=== PATIENT | male | born 1960 | race Caucasian/White ===

== ENCOUNTER 2020-01-23 17:29 | Emergency (ER) | payer MEDICAID, SELFPAY ==
[2020-01-23] VITALS (9 sets, daily range): BP systolic 112–141; BP diastolic 77–88; PULSE 54–67; RESP 10–18; TEMP 36.6–37.1; O2SAT 94–97
--- NOTE | 2020-01-23 17:30 | DI.RAD_ITS ---
EXAM: XR CHEST 2V PA LATERAL CLINICAL HISTORY: chest pain TECHNIQUE: 2D digital imaging was performed. COMPARISON: No exams were available for comparison FINDINGS: MEDIASTINUM: Normal. HEART: Normal. PULMONARY VASCULATURE: Normal. LUNGS: Clear. The lungs appear hyperinflated with flattened diaphragms suggesting underlying COPD. PLEURAL SPACE: No pleural effusion or pneumothorax. BONE:Normal. OTHER FINDINGS:Normal. IMPRESSION: No acute pulmonary findings. DATA REPOSITORY: RADIATION DOSE DELIVERED:
[2020-01-23] MEDS: Aspirin 81 MG CHEW 324 MG CH (17:48)
[2020-01-23 18:01] LABS: Abs Immature Grans 0.02 k/cumm (0.0-0.09); Absolute Basophil Count 0.02 k/cumm (0.0-0.2); Absolute Eosinophil Count 0.23 k/cumm (0.0-0.7); Absolute Lymphocyte Count 3.42 k/cumm (1.2-3.4); Absolute Monocyte Count 0.95 k/cumm (0.11-0.7); Absolute Neutrophil Count 5.21 k/cumm (1.2-6.7); Basophils % 0.2; Eosinophils % 2.3; HCT 42.6 % (40.0-50.0); HGB 14.4 g/dL (13.5-17.5); Immature Grans % 0.2 %; Lymphocytes % 34.7; Mean Corp. HGB Concentration 33.8 g/dL (32.0-36.0); Mean Corpuscular Hemoglobin 29.8 pg (27.0-33.0); Mean Corpuscular Volume 88.2 fL (80-95); Mean Platelet Volume 9.3 fL (8.0-11.0); Monocytes % 9.6; Platelet Count 371 x1000/uL (130-400); RBC 4.83 m/cumm (4.50-6.00); RBC Distribution Width 13.6 % (11.8-14.1); White Blood Cell Count 9.85 k/cumm (4.4-10.8)
[2020-01-23 18:08] LABS: ALT 35 U/L (16-63); AST 20 U/L (15-37); Albumin 3.7 g/dL (3.4-5.0); Alkaline Phosphatase 87 U/L (46-116); Anion Gap 7.7 mmol/L (3-11); BUN 23 mg/dL (7-18); Bilirubin, Total 0.2 mg/dL (0.2-1.0); CO2 28.3 mmol/L (21.0-32.0); CREATININE 0.86 mg/dL (0.70-1.30); Calcium 8.9 mg/dL (8.5-10.1); Chloride 103 mmol/L (98-107); Glucose 112 mg/dL (74-106); Magnesium 1.9 mg/dL (1.8-2.4); Potassium 4.1 mmol/L (3.5-5.1); Sodium 139 mmol/L (136-145); Total Protein 7.1 g/dL (6.4-8.2)
[2020-01-23 18:09] LABS: Troponin I < 0.05 ng/mL (<0.06)
--- NOTE | 2020-01-23 18:13 | NUR.NOTE ---
Assumed care of pt, report from Chanel. Pt reports intermittent sharp/heavy left chest pain that woke him from sleep this am at 0400 with associated SOB. No exacerbating factors. Plan for repeat trop at 2039.
--- NOTE | 2020-01-23 18:21 | W.ED.GENAD ---
Discharge Plan Disposition Patient Disposition: OTHER Condition: Serious Discharge Details Chief Complaint: Chest Pain Clinical Impression: Chest pressure Primary Care Provider: Yair Haque ED Provider: Tyrone Vega Home Meds and New Rx's Prescriptions: No Action No Known Home Meds RF: 0 Medical Decision Making 59-year-old gentleman, smokes 1 pack of cigarettes daily, otherwise no past medical history presents for chest tightness over the past 2 days. Occasionally gets aching in his left shoulder-upper arm and a sharp pain through the left side of his chest. Patient's father of a massive heart attack at age 49. Patient appears well, nontoxic but certainly story is concerning given the vague chest tightness, going to the left shoulder, smokes 1 pack of cigarettes daily. No evidence of tachycardia or hypoxia, diagnosis such as pneumonia, PE, low my differential. Will not obtain d-dimer. I am unable to reproduce the discomfort, difficult to say this is musculoskeletal in nature. As above, certainly concerning for ACS. Will give full dose aspirin and obtain a cardiac work-up. Initial work-up here in the ER unremarkable. Patient continues to state that he is a 5 of 10 tightness-heaviness. Will subsequently give nitro and reevaluate. Patient reports that after the first nitro his pain mostly 5 down to 2, after the second nitro pain went from a 2 down to a 1. He now has some discomfort along the right side of his chest. Case was reviewed with Dr. Carter who evaluated the patient herself, please see her note. Discussed options with patient. We could certainly obtain a repeat troponin and EKG in 3 hours and if unremarkable could set up for an outpatient stress test versus admit to our facility for a cardiac rule out. I do believe that his story is concerning enough that admission is reasonable. After both I and Dr. Carter spoke with the patient, he is comfortable with admission to our facility. I placed a call to our hospitalist team, I spoke with Dr. Haque, he will evaluate the patient in the ER and admit to his services. Medical Records Medical records reviewed: Yes I reviewed the patient's medical records. Imaging Data Radiologic Study: Attestation: I personally reviewed and interpreted this imaging study as follows: Imaging: X-Ray Radiologist's impression: Chest x-ray unremarkable, read by virtual radiology Lab Data Lab results reviewed: Yes I reviewed the patient's lab results. Lab results narrative: Laboratory Tests Range/Units 01/23/20 01/23/20 17:40 17:40 WBC (4.4-10.8) k/cumm 9.85 RBC (4.50-6.00) m/cumm 4.83 Hgb (13.5-17.5) g/dL 14.4 Hct (40.0-50.0) % 42.6 MCV (80-95) fL 88.2 MCH (27.0-33.0) pg 29.8 MCHC (32.0-36.0) g/dL 33.8 RDW (11.8-14.1) % 13.6 Plt Count (130-400) x1000/uL 371 MPV (8.0-11.0) fL 9.3 Immature Gran % % 0.2 Neutrophils % 53.0 Lymphocytes % 34.7 Monocytes % 9.6 Eosinophils % 2.3 Basophils % 0.2 Absolute Neutrophils (1.2-6.7) k/cumm 5.21 Absolute Lymphocytes (1.2-3.4) k/cumm 3.42 H Absolute Monocytes (0.11-0.7) k/cumm 0.95 H Absolute Eosinophils (0.0-0.7) k/cumm 0.23 Absolute Basophils (0.0-0.2) k/cumm 0.02 Sodium (136-145) mmol/L 139 Potassium (3.5-5.1) mmol/L 4.1 Chloride (98-107) mmol/L 103 Carbon Dioxide (21.0-32.0) mmol/L 28.3 Anion Gap (3-11) mmol/L 7.7 BUN (7-18) mg/dL 23 H Creatinine (0.70-1.30) mg/dL 0.86 Estimated GFR/1.73 m2 (mL/min/1.73m2) >= 60.00 Glucose (74-106) mg/dL 112 H Calcium (8.5-10.1) mg/dL 8.9 Magnesium (1.8-2.4) mg/dL 1.9 Total Bilirubin (0.2-1.0) mg/dL 0.2 AST (15-37) U/L 20 ALT (16-63) U/L 35 Alkaline Phosphatase (46-116) U/L 87 Troponin I (<0.06) ng/mL < 0.05 Total Protein (6.4-8.2) g/dL 7.1 Albumin (3.4-5.0) g/dL 3.7 ECG Data Attestation: I personally reviewed and interpreted this ECG (s) as follows: Interpretation: Reviewed and interpreted with Dr. Carter. EKG obtained at 1736, reveals sinus rhythm, ventricular rate of 61. No STEMI. HPI General Mode of arrival: ambulatory. Date/Time Provider Initiated Documentation: 01/23/20 17:30. Limitations to Documentation: no limitations. Information obtained by: patient. HPI Narrative: This is a 59-year-old gentleman with no significant past medical history, does smoke a pack of cigarettes daily, presenting to the ER for evaluation of chest tightness over the past 2 days. He reports that the tightness has been pretty consistent since it began but he does get some aching in his left shoulder and does occasionally have a sharp left-sided chest pain. The pain does not go past his elbow and his left arm. It does not radiate into his neck or into his jaw. He denies cough or shortness of breath. He denies recent illness or trauma. He does not take aspirin daily. Patient reports having had a stress test 15-20 years ago. Of note, his father did pass of a heart attack at the age of 49. Patient denies any pain in his back, abdominal pain, nausea, vomiting, change in bowel or bladder habit, pain or swelling in his legs, numbness, tingling, weakness. He does report general fatigue Related Data Home Medications Medication Instructions Recorded Confirmed Unknown [No Known Home Meds] 01/23/20 01/23/20 Allergies Allergy/AdvReac Type Severity Reaction Status Date / Time Penicillins Allergy Unverified 01/23/20 17:38 General Stated Complaint: Chest Pain ADIS: 2 Review of Systems Constitutional Constitutional: Reports fatigue, Denies fever(s), Denies headache(s) and Denies weakness Eyes Eyes: Denies change in vision ENT Ears, Nose, Mouth, and Throat: Denies headache(s) and Denies sore throat Cardiovascular Cardiovascular: Reports chest pain, Denies rapid heart rate, Denies irregular heart rhythm, Denies leg edema, Denies lightheadedness, Reports radiating jaw, neck or arm pain and Denies dyspnea Respiratory Respiratory: Denies cough, Denies dyspnea and Denies wheezing Gastrointestinal Gastrointestinal: Denies abdominal pain, Denies nausea and Denies vomiting Genitourinary Genitourinary: Denies dysuria Musculoskeletal Musculoskeletal: Denies back pain, Denies numbness and Denies tingling Integumentary/Breasts Skin/Breast: Denies rash Neurologic Neurologic: Denies headache(s), Denies numbness, Denies tingling and Denies weakness Endocrine Endocrine: Reports fatigue Allergic/Immunologic Allergic/Immunologic: Denies wheezing [facility] Social History Smoking/Tobacco Use Status: Current every day Tobacco Type: cigarettes Alcohol Intake: current Alcohol Intake frequency: holidays/special occasions only Alcohol type: beer Drug use: Occasionally Substance use type: marijuana Exam Const General: cooperative, healthy appearing, comfortable and no acute distress Orientation: alert, awake and oriented x3 HENMT Head: normal to inspection, normocephalic and atraumatic Mouth: moist mucous membranes Throat: posterior oropharynx normal Eyes Conjunctivae: conjunctivae normal Neck Neck: normal visual inspection, full ROM, no lymphadenopathy, no meningeal signs, trachea midline, supple and nontender Chest Chest: normal inspection of the chest and normal palpation of entire chest wall Resp Effort & Inspection: normal respiratory effort and able to speak in complete sentences Auscultation: clear to auscultation bilaterally Cardio Rate: regular rate Rhythm: regular rhythm GI Inspection: normal to inspection Palpation: soft, not firm, no guarding, no pulsatile masses, not rigid and nontender Auscultation: normal bowel sounds Back/Spine/Pelvis Back: No back tenderness Skin General skin exam: no rashes or lesions noted Neuro General: patient alert, patient awake, patient oriented x3, moves all extremities and no focal motor deficits Gait: normal gait Motor: muscle tone normal throughout and strength 5/5 throughout Sensory Exam: no sensory deficits noted Extrem General: normal to inspection, full ROM, capillary refill normal, no pedal edema, no calf tenderness and normal gait Psych Appearance: grossly normal Mental Status: mental status grossly normal Course Vital Signs Vital signs: Vital Signs Temperature 37.1 C 01/23/20 17:34 Pulse 60 01/23/20 17:34 Respiratory Rate 16 01/23/20 17:34 Blood Pressure 139/85 01/23/20 17:34 Pulse Oximetry 96 01/23/20 17:34 Temperature 37.1 C 01/23/20 17:34 Temperature Source Skin 01/23/20 17:34 Pulse 60 01/23/20 17:46 Pulse 66 01/23/20 17:46 Respiratory Rate 16 01/23/20 17:46 Respiratory Effort Non-Labored 01/23/20 17:39 Blood Pressure 129/86 01/23/20 17:46 Blood Pressure Mean 97 01/23/20 17:46 Blood Pressure Position Supine 01/23/20 17:34 Pulse Oximetry 94 L 01/23/20 17:46 Oxygen Delivery Method Room Air 01/23/20 17:34 Oxygen Flow Rate 0 01/23/20 17:34 Pain Level 0 01/23/20 17:34 Lab/Test Results Lab/Test Results: Laboratory Tests Range/Units 01/23/20 01/23/20 17:40 17:40 WBC (4.4-10.8) k/cumm 9.85 RBC (4.50-6.00) m/cumm 4.83 Hgb (13.5-17.5) g/dL 14.4 Hct (40.0-50.0) % 42.6 MCV (80-95) fL 88.2 MCH (27.0-33.0) pg 29.8 MCHC (32.0-36.0) g/dL 33.8 RDW (11.8-14.1) % 13.6 Plt Count (130-400) x1000/uL 371 MPV (8.0-11.0) fL 9.3 Immature Gran % % 0.2 Neutrophils % 53.0 Lymphocytes % 34.7 Monocytes % 9.6 Eosinophils % 2.3 Basophils % 0.2 Absolute Neutrophils (1.2-6.7) k/cumm 5.21 Absolute Lymphocytes (1.2-3.4) k/cumm 3.42 H Absolute Monocytes (0.11-0.7) k/cumm 0.95 H Absolute Eosinophils (0.0-0.7) k/cumm 0.23 Absolute Basophils (0.0-0.2) k/cumm 0.02 Sodium (136-145) mmol/L 139 Potassium (3.5-5.1) mmol/L 4.1 Chloride (98-107) mmol/L 103 Carbon Dioxide (21.0-32.0) mmol/L 28.3 Anion Gap (3-11) mmol/L 7.7 BUN (7-18) mg/dL 23 H Creatinine (0.70-1.30) mg/dL 0.86 Estimated GFR/1.73 m2 (mL/min/1.73m2) >= 60.00 Glucose (74-106) mg/dL 112 H Calcium (8.5-10.1) mg/dL 8.9 Magnesium (1.8-2.4) mg/dL 1.9 Total Bilirubin (0.2-1.0) mg/dL 0.2 AST (15-37) U/L 20 ALT (16-63) U/L 35 Alkaline Phosphatase (46-116) U/L 87 Troponin I (<0.06) ng/mL < 0.05 Total Protein (6.4-8.2) g/dL 7.1 Albumin (3.4-5.0) g/dL 3.7
--- NOTE | 2020-01-23 18:30 | DI.VRAD_ITS ---
PROCEDURE INFORMATION: Exam: XR Chest, 2 Views Exam date and time: 01/23/2020 6:23 PM Age: 59 years old Clinical indication: Chest pain TECHNIQUE: Imaging protocol: XR of the chest Views: 2 views. COMPARISON: No relevant prior studies available. FINDINGS: Lungs: Unremarkable. No consolidation. Pleural space: Unremarkable. No pleural effusion. No pneumothorax. Heart/Mediastinum: Unremarkable. No cardiomegaly. Bones/joints: Unremarkable. IMPRESSION: No acute findings. Dictated and Authenticated by: Darius Roberts MD. Ordering:ROSIBEL Hansen MD
--- NOTE | 2020-01-23 19:47 | NUR.NOTE ---
[facility] in to eval pt for admission. pain to 2/10 s/p 2 nitro.
--- NOTE | 2020-01-23 20:01 | W.MEDCONSULT ---
Date of service: 01/23/20 Time of Service: 20:01 Assessment and Plan Assessment and plan (1) Chest pain: Status: Acute Assessment and plan: CP. I think ACS unlikely, what with no findings after 48 hours of continuous symptoms. I think response to AAs is affirmative evidence favoring GI source, though there is also a suggestion of musculoskeletal issue. Suffice to say that I think ACS is the least likely of these possibilities (note that any response to NTG is non-specific and could equally point to GI). Assuming second troponin remains flat I do not feel patient requires urgent admission. I think a reasonable plan would be to start him on PPI, and arrange for elective stress test within the week. History of Present Illness History of Present Illness Chief Complaint: CP Narrative: 59 male smoker. Reports 48 h of continuous CP -- substernal, pressure, occ sharp radiation to left shoulder. Also some involvement of epigastrum. No SOB, nausea or diaphoresis. No relation to activity, but has noted few occasions when he was working with arms extended and raised that pain may have been worse. No relation to PO or position. Took Rolaids this AM with definitre improvement. In ER w/u of note for negative troponin, CXR and normal EKG. Notes some improvement with SL NTG. I was asked to see patient for further evaluation. Review of Systems All systems reviewed & are unremarkable except as noted in HPI and below PFSH Social History Smoking/Tobacco Use Status: Current every day Tobacco Type: cigarettes Alcohol Intake: current Alcohol Intake frequency: holidays/special occasions only Alcohol type: beer Drug use: Occasionally Substance use type: marijuana Exam Narrative Exam Narrative: 135/77, 54, 16, 37.1, 97% RA. HEENT AT/NC; neck supple w/o JVD; lungs clear; heart RRR w/o MRG; mild tenderness left parasternal and upper chest, correspopnding to areas he repoprts as involved, though cannot say that the tenderness reproduces his pain specifically; abdomen soft and NT; extremities w/o edema, pulses 2+/=; neuro Ox3, non-focal Results Last Vital Signs Temp 37.1 C 01/23/20 17:34 Pulse 54 L 01/23/20 19:40 Resp 16 06/08/20 19:40 BP 135/77 01/23/20 19:40 Pulse Ox 97 01/23/20 19:40 Labs Result diagrams: 01/23/20 17:40 01/23/20 17:40 Labs: Laboratory Results - last 24 hr 01/23/20 01/23/20 17:40 17:40 WBC 9.85 RBC 4.83 Hgb 14.4 Hct 42.6 MCV 88.2 MCH 29.8 MCHC 33.8 RDW 13.6 Plt Count 371 MPV 9.3 Immature Gran % 0.2 Neutrophils % 53.0 Lymphocytes % 34.7 Monocytes % 9.6 Eosinophils % 2.3 Basophils % 0.2 Absolute Neutrophils 5.21 Absolute Lymphocytes 3.42 H Absolute Monocytes 0.95 H Absolute Eosinophils 0.23 Absolute Basophils 0.02 Sodium 139 Potassium 4.1 Chloride 103 Carbon Dioxide 28.3 Anion Gap 7.7 BUN 23 H Creatinine 0.86 Estimated GFR/1.73 m2 >= 60.00 Glucose 112 H Calcium 8.9 Magnesium 1.9 Total Bilirubin 0.2 AST 20 ALT 35 Alkaline Phosphatase 87 Troponin I < 0.05 Total Protein 7.1 Albumin 3.7
[2020-01-23 20:55] LABS: Troponin I < 0.05 ng/mL (<0.06)
== END 2020-01-23 21:20 | disposition home or self-care (01) ==
PROVIDERS: Emergency Provider Physician Assistant; PCP Neuromusculoskeletal Medicine & OMM
DX: R07.89 Other chest pain (principal); R06.02 Shortness of breath; F17.200 Nicotine dependence, unspecified, uncomplicated; Z53.29 Procedure and treatment not carried out because of patient's decision for other reasons
CPT/HCPCS: 36415; 80053; 93005; 99252; 99283; 99285; 71046; 83735; 84484; 85025; 93010

== ENCOUNTER 2020-01-24 11:00 | Emergency (ER) | payer MEDICAID, SELFPAY ==
[2020-01-24] VITALS (39 sets, daily range): BP systolic 125–157; BP diastolic 77–101; PULSE 51–82; RESP 10–20; TEMP 36.5; O2SAT 94–99
[2020-01-24] MEDS: Normal Saline Flush 10 ML SYR IVP (11:00)
--- NOTE | 2020-01-24 11:15 | ETT_ITS ---
APPROVED REPORT Exam: Exercise Treadmill Patient Location: ER Room/Bed: Stress Nurse: Sofía García RN BMI: 21.47 Baseline Rhythm: Sinus Rhythm Indications: Chest pain. Medical History Medical History: Angina Allergies: Penicillins Cardiac Risk Factors: FHX of CAD Pretest Chest Pain Characteristics: Exertional Chest pain Exercise History: Physically active Lung Sounds: Clear to auscultation Heart Sounds: Regular Stress Test Details Test: Exercise stress testing was performed using a Holger protocol. Rest Stress HR Resting HR Supine: 58 bpm Max Heart Rate (APMHR): 162 bpm Resting HR Standin bpm Target HR (85% APMHR): 137 bpm Max HR Achieved: 174 bpm % of APMHR: 107 Recovery HR: 85 bpm HR response to stress: Normal HR response to stress BP Resting BP Supine: 150/98 mmHg Resting BP Standin/90 mmHg Max BP: 172/90 mmHg Recovery BP: 150/94 mmHg BP response to stress: Normal blood pressure response to stress. ECG Resting ECG: Sinus Rhythm Stress ECG: Sinus Tachycardia ST Change: No significant ST segment changes Arrhythmia: None Recovery ECG: Sinus Rhythm Recovery ST Change: No significant ST segment changes Recovery Arrhythmia: None Clinical Reason for Termination: Fatigue Stress Symptoms: Chest pain Exercise duration: 12 min30 sec Highest Stage Reached: Stage 4: 4.2 mph at 16% grade. Exercise capacity: 13.81 METs Functional Capacity: Above average capacity Stress ECG Conclusion 1. The patient exercised for 12 minutes and 13 seconds (14 METS). Rate-pressure product was 30,000 2. Patient had mild chest pain associated with exercise but test was stopped due to fatigue 3. There was no evidence of ischemia on the ECG portion of the exam. 4. The Bower Score ( 8) estimates an annual cardiovascular mortality of 0% and a five year survival of 95%. Using the Bower Score there is a low probability of any angiographic coronary disease. Stress Test Summary STAGE Time (mins) Speed (mph) Grade (%) HR BP SYMPTOMS METS Supine 58 150/98 Standing 69 144/90 1 3 1.7 10 83 156/88 4.6 2 6 2.5 12 102 166/82 7 3 9 3.4 14 133 178/80 4/5 out of 10 chest pain lasted for few seconds only 10.2 4 12 4.2 16 162 12.9 5 15 5.0 18 174 17.2 1 min recovery 145 172/88 chest pain subsided. 3 min recovery 102 172/90 6 min recovery 85 150/94
[2020-01-24 11:21] LABS: Abs Immature Grans 0.02 k/cumm (0.0-0.09); Absolute Basophil Count 0.02 k/cumm (0.0-0.2); Absolute Eosinophil Count 0.19 k/cumm (0.0-0.7); Absolute Lymphocyte Count 3.19 k/cumm (1.2-3.4); Absolute Monocyte Count 1.02 k/cumm (0.11-0.7); Absolute Neutrophil Count 5.77 k/cumm (1.2-6.7); Basophils % 0.2; Eosinophils % 1.9; HCT 47.4 % (40.0-50.0); HGB 15.9 g/dL (13.5-17.5); Immature Grans % 0.2 %; Lymphocytes % 31.2; Mean Corp. HGB Concentration 33.5 g/dL (32.0-36.0); Mean Corpuscular Hemoglobin 29.8 pg (27.0-33.0); Mean Corpuscular Volume 88.8 fL (80-95); Neutrophils % 56.5; Platelet Count 402 x1000/uL (130-400); RBC 5.34 m/cumm (4.50-6.00); RBC Distribution Width 13.8 % (11.8-14.1); White Blood Cell Count 10.21 k/cumm (4.4-10.8)
--- NOTE | 2020-01-24 11:21 | ED.GENADUL_ITS ---
Discharge Plan Disposition Patient Disposition: HOME Condition: Stable Discharge Details Chief Complaint: Chest Pain Clinical Impression: Chest pain Primary Care Provider: Jeff Trivedi ED Provider: Morena Hernandez Home Meds and New Rx's Prescriptions: New aspirin [Children's Aspirin] 81 mg tablet,chewable 81 mg PO DAILY Qty: 30 RF: 0 famotidine [Pepcid] 20 mg tablet 20 mg PO DAILY Qty: 30 RF: 0 Discharge Instructions Instructions: Chest Pain (ED) Additional Instructions: Follow up with primary care provider in 3-5 days. Return to ED sooner if any worsening or concerns. Take baby aspirin daily, try famotidine or Pepcid daily take 1 at bedtime every day for the next 1 to 2 weeks see if this improves pain. Today you had another extensive cardiac work-up including a stress test which was largely within normal limits. You have had 3- troponins which are specific for acute cardiac injury, multiple EKGs. You do still need to follow-up with cardiology and your primary care provider. I will give you the contact information below and we will put you on a care management follow-up list for cardiology appointment for possible outpatient echocardiogram. Referrals: Jeff Trivedi [Primary Care Provider] - Yair Mcneal MD [ CONSULTING PHYSICIAN] - (Follow-up in 1 to 2 weeks for cardiology establishment.) Discharge Data Discharge Date/Time-TO BE ENTERED AT DEPARTURE: 01/24/20 15:49 Medical Decision Making <Morena Hernandez - Last Filed: 01/25/20 08:25> 59-year-old male presents with chief complaint of midsternal left-sided chest pressure patient was seen here in the ED for same complaint yesterday and was sent home with close follow-up for outpatient stress test. Patient reports that last night he went home and had some diaphoresis with continued chest pressure rating about a 6-7 out of 10. Denies nausea, shortness of breath, no bilateral lower extremity swelling. He does do heavy lifting daily. He has a strong family cardiac history dad of a massive NE at age 49. Daily smoker, does endorse marijuana use and occasional alcohol. 1115: Stress test ordered, they have availability at 1300 today. We will repeat cardiac work-up including EKG, EKG was reviewed by Dr. Goran Roper MD ER attending, no STEMI. Old EKG was available for review no significant change noted. 1402: Patient reevaluation, patient has returned from stress test, states nitroglycerin sublingual did help with pain. Initial troponin is negative, second troponin was canceled. At this time stress test result is pending, will consult with cardiology regarding patient. Dr. Fredis nieves, will call back. 1430: Spoke with Dr. Mcneal, discussed in detail patient case and exams, supervisor telephone information at this time is somewhat apparent with 3 different negative troponins over 24 hours, repeat EKGs, and a normal stress test that this is noncardiac in nature. He did recommend an echocardiogram but did not need to be done in an urgent or emergent nature at this time. Differential diagnosis includes but not limited to, CAD, angina, musculoskeletal, gastritis, PE, -which I think is unlikely due to not tachycardic, no swelling in lower extremities, no shortness of breath. Plan is to have patient closely follow-up with PCP and cardiology referral with follow-up in 1 to 2 weeks. For echocardiogram as an outpatient. Discussed results with patient, strict return instructions discussed, verbalized understanding. Will place patient on a daily baby aspirin. Patient remained hemodynamically stable throughout stay, 1446: Jacquelin TELLEZ at bedside for patient kaye, will order chest CT due to repeat visit to ED with continued chest pain to rule out underlying mass or other etiology. Patient is somewhat high risk due to age, daily smoker and strong family history. Preliminary result from radiologist obtained for negative chest CT PE protocol. Patient to be discharged. This text was generated using [employer] dictation system, please disregard any oddities of phrase or misspellings. <Goran Roper MD - Last Filed: 01/24/20 15:17> Patient examined [id number], discussed with Ms. Hernandez, recent records reviewed. I agree with her assessment and plan including repeat troponin and stress test. See her note regarding details of the case HPI <Morena Hernandez - Last Filed: 01/25/20 08:25> General Mode of arrival: ambulatory . Date/Time Provider Initiated Documentation: 01/24/20 11:01 . Limitations to Documentation: no limitations . Information obtained by: patient . HPI Narrative: 59-year-old male presents with chief complaint of midsternal left-sided chest pressure patient was seen here in the ED for same complaint yesterday and was sent home with close follow- up for outpatient stress test. Patient reports that last night he went home and had some diaphoresis with continued chest pressure rating about a 6-7 out of 10. Denies nausea, shortness of breath, no bilateral lower extremity swelling. He does do heavy lifting daily. He has a strong family cardiac history dad of a massive NE at age 49. Daily smoker, does endorse marijuana use and occasional alcohol. Related Data Home Medications Medication Instructions Recorded Confirmed aspirin [Children's Aspirin] 81 mg PO DAILY #30 tab 01/24/20 famotidine [Pepcid] 20 mg PO DAILY #30 tab 01/24/20 Previous Rx's Medication Instructions Recorded aspirin [Children's Aspirin] 81 mg PO DAILY #30 tab 01/24/20 famotidine [Pepcid] 20 mg PO DAILY #30 tab 01/24/20 Allergies Allergy/AdvReac Type Severity Reaction Status Date / Time Penicillins Allergy Unverified 01/23/20 17:38 General Stated Complaint: Chest Pain ADIS: 2 Review of Systems <Morena Hernandez - Last Filed: 01/25/20 08:25> Narrative: Constitutional: Negative for weight loss, alert and oriented, well groomed, normal body habitus, appears comfortable. HEENT: Denies trauma, headaches, blurry vision, nasal discharge, sore throat, trouble swallowing. Chest: Denies, palpitations, irregular rhythm, hypertension. Positive chest pressure, alternating with sharp pains at rest. Strong family history. Daily smoker. Respiratory: Denies Shortness of breath, cough, hemoptysis. GI: Denies abdominal pain, nausea, vomiting, diarrhea, constipation. : Denies dysuria, hematuria, flank pain, rectal bleeding. Neuro: Denies dizziness, blurry vision, weakness, syncope, headache or facial numbness. Hematologic: Denies easy bruising, intolerance to heat or cold, hair loss. All systems reviewed & are unremarkable except as noted in HPI and below PFSH <Morena Hernandez - Last Filed: 01/25/20 08:25> Social History Smoking/Tobacco Use Status: Current every day Tobacco Type: cigarettes Alcohol Intake: current Alcohol Intake frequency: holidays/special occasions only Alcohol type: beer Drug use: Occasionally Substance use type: marijuana Do you feel safe at home: Yes Do you feel safe in your relationship?: Yes Exam <Morena Hernandez - Last Filed: 01/25/20 08:25> Narrative Exam Narrative: Constitutional: Alert and oriented x3. Appears stated age. Normal body habitus. Head: Normocephalic, no trauma. Eyes: Pupils PERRLA, Red reflex noted, EOM's intact. Eyelids symmetrical without lesions, discharge, or swelling. ENT: Bilateral TM's WNL, External ear normal to inspection, no mastoid TTP, swelling, or erythema, Nasal turbinates WNL, no nasal discharge. Normal dentition, Posterior pharynx WNL, no exudate. Chest: RRR, Normal S1, S2, distal pulses intact. No murmur auscultated, chest pain nonreproducible with palpation, Resp: Lungs clear to auscultation bilaterally, no wheezes, rales, or rhonchi. Musculoskeletal: Normal gait, 5/5 strength to all four extremities. Skin: No suspicious rashes or lesions. Capillary refill less than 2 sec. Neurologic: Cranial nerves II-XII intact. Alert and oriented x 3. DTR's intact. Hematologic/Lymphatic: No ecchymosis, no lymphadenopathy. Course <Morena Hernandez - Lyle Filed: 01/25/20 08:25> Vital Signs Vital signs: Vital Signs Temperature 36.5 C 01/24/20 11:03 Pulse 66 01/24/20 11:03 Respiratory Rate 15 01/24/20 11:03 Blood Pressure 145/94 H 01/24/20 11:03 Pulse Oximetry 99 01/24/20 11:03 Temperature 36.5 C 01/24/20 11:03 Temperature Source Temporal Artery Scan 01/24/20 11:03 Pulse 66 01/24/20 11:03 Respiratory Rate 15 01/24/20 11:10 Respiratory Effort Non-Labored 01/24/20 11:10 Respiratory Depth Normal 01/24/20 11:10 Respiratory Pattern Normal 01/24/20 11:10 Blood Pressure 145/94 H 01/24/20 11:03 Blood Pressure Position Supine 01/24/20 11:03 Pulse Oximetry 99 01/24/20 11:03 Oxygen Delivery Method Room Air 01/24/20 11:03 Oxygen Flow Rate 0 01/24/20 11:03 Pain Level 6 01/24/20 11:10
[2020-01-24] MEDS: Aspirin 81 MG CHEW (11:28)
[2020-01-24 11:37] LABS: ALT 36 U/L (16-63); AST 16 U/L (15-37); Albumin 4.2 g/dL (3.4-5.0); Alkaline Phosphatase 93 U/L (46-116); Anion Gap 8.6 mmol/L (3-11); BUN 17 mg/dL (7-18); Bilirubin, Total 0.5 mg/dL (0.2-1.0); CO2 28.4 mmol/L (21.0-32.0); CREATININE 0.95 mg/dL (0.70-1.30); Calcium 9.1 mg/dL (8.5-10.1); Chloride 102 mmol/L (98-107); Glucose 104 mg/dL (74-106); Potassium 3.9 mmol/L (3.5-5.1); Sodium 139 mmol/L (136-145); Total Protein 8.1 g/dL (6.4-8.2)
[2020-01-24 11:43] LABS: Troponin I < 0.05 ng/mL (<0.06)
[2020-01-24] MEDS: Omnipaque 350 MG/ML 100 ML BTL IJ (15:16)
[2020-01-24] MEDS: Normal Saline - Diluent 50 ML VIAL IV (15:16)
--- NOTE | 2020-01-24 15:17 | DI.CT_ITS ---
EXAM: CT CHEST PE CTA CLINICAL HISTORY: Midsternal left-sided chest pain. TECHNIQUE: Imaging Protocol: Axial CT angiography was performed with multi-slice acquisition and mu lti-planar and/or 3D reconstructions. CONTRAST MATERIAL: Intravenous: Omnipaque 350 Contrast volume:64 mL COMPARISON: CR,XR XR CHEST 2V PA LATERAL from 01/23/2020 FINDINGS: Pulmonary Arteries: No evidence of filling defect to suggest pulmonary emboli. Tracheobronchial tree: Patent where visualized. Mediastinum and [place]: No dominant adenopathy or fluid collection. Pulmonary parenchyma: No consolidation or dominant measurable mass. Centrilobular and paraseptal emph ysematous changes. Bilateral dependent atelectasis. Pleura: No effusion or pneumothorax. Heart: The heart is not dilated. No coronary artery calcifications are seen. No significant pericardi al effusion. Aorta: Thoracic aorta non-dilated. No evidence of thoracic aortic dissection or aneurysm. Upper abdomen: Unremarkable. Bones: Within normal limits for the patient's age. IMPRESSION: No evidence of pulmonary embolus, thoracic aortic dissection or aneurysm. Findings were discussed with the emergency department on the date of the examination. RADIATION DOSE DELIVERED: 358.71mGy.cm Total DLP DATA REPOSITORY: All CT scans at this facility are submitted to the National Radiology Data Registry (NRDR) Dose Index Registry (DIR) with the [employer] ([employer]). RADIATION OPTIMIZATION: All CT scans at this facility use at least one of these dose optimization te chniques: automated exposure control; mA and/or kV adjustment per patient size (includes targeted exa ms where dose is matched to clinical indication); or iterative reconstruction.
--- NOTE | 2020-01-24 17:59 | NUR.NOTE ---
Nursing Note: Referral faxed to [facility] Cardiology for follow up. Zayra Hernandez
== END 2020-01-24 15:49 | disposition home or self-care (01) ==
PROVIDERS: Emergency Provider Registered Nurse Emergency; PCP Neuromusculoskeletal Medicine & OMM
DX: R07.9 Chest pain, unspecified (principal); R61 Generalized hyperhidrosis; Z82.49 Family history of ischemic heart disease and other diseases of the circulatory system; Z82.41 Family history of sudden cardiac death; F17.210 Nicotine dependence, cigarettes, uncomplicated
CPT/HCPCS: 36415; 71275; 80053; 93005; 99285; 83735; 84484; 85025; 93010; 93017; 99284; J3490